=== PATIENT | female | born 1935 | race Caucasian/White ===

== ENCOUNTER 2023-01-29 19:42 | Emergency (ER) | payer MEDICARE ==
[~2023-01-29] VITALS: Ht 165.1 cm; Wt 83.9 kg
--- NOTE | 2023-01-29 20:20 | NUR ---
[id number] FROM HOME WITH CC OF COUGH, GEN WEAKNESS X2 DAYS, VOMITTED 2X. TESTED +COVID TODAY. PLACED IN BED, AAOX4, BREATHING EVEN AND UNLABORED SATURATING AT 96%RA.
--- NOTE | 2023-01-29 20:55 | NUR ---
BLOOD DRAWN AND SENT TO LAB
--- NOTE | 2023-01-29 20:57 | NUR ---
DELVIS NOEL DAUGHTER [phone] WANTS CALLBACK
[2023-01-29] MEDS ORDERED: ACETAMINOPHEN ES 500 MG TABLET PO ONE (21:00)
[2023-01-29] MEDS ORDERED: ACETAMINOPHEN ES 500 MG TABLET ONE (21:14)
[2023-01-29 21:25] LABS: BASOPHILS % (AUTO) 0.5 % (0.0-2.0); EOSINOPHILS % (AUTO) 0.3 % (0.0-6.0); HEMATOCRIT 41 % (33-45); HEMOGLOBIN 13.5 g/dL (11.5-14.8); LYMPHOCYTES % (AUTO) 12.4 % (20.0-44.0); MEAN CORPUSCULAR HGB CONC 33 g/dl (31.0-36.0); MEAN CORPUSCULAR VOLUME 89 fL (82-100); MONOCYTES # (AUTO) 0.9 K/uL (0.1-1.30); MONOCYTES % (AUTO) 12.2 % (2.0-12.0); NEUTROPHILS # (AUTO) 5.8 K/uL (1.8-8.9); NEUTROPHILS % (AUTO) 74.6 % (43.0-81.0); PLATELET COUNT (AUTO) 199 K/uL (150-450); RED BLOOD CELL COUNT(AUTO) 4.55 MIL/uL (4.0-5.2); WHITE BLOOD COUNT (AUTO) 7.8 K/uL (4.3-11.0)
--- NOTE | 2023-01-29 22:54 | NUR ---
COVID SWAB DONE AND SENT TO LAB
[2023-01-29 23:05] LABS: CHLORIDE 105 mmol/L (98-107); POTASSIUM 4.1 mmol/L (3.5-5.1); SODIUM SERUM 138 mmol/L (136-145)
[2023-01-29 23:06] LABS: CALCIUM, SERUM 8.9 mg/dL (8.5-10.1); CARBON DIOXIDE 28 mmol/L (21-32); GLUCOSE 123 mg/dL (74-106)
[2023-01-29 23:07] LABS: ALBUMIN 3.3 g/dL (3.4-5.0); ALKALINE PHOSPHATASE 50 U/L (46-116); CREATININE 1.2 mg/dL (0.6-1.3); TOTAL PROTEIN, SERUM 6.7 g/dL (6.4-8.2)
[2023-01-29] MEDS ORDERED: APIXABAN 2.5 MG TABLET ONE (23:43)
[2023-01-29] MEDS ORDERED: CARBIDOPA/LEVODOPA 25/100 MG 1 UDTAB ONE (23:57)
[2023-01-30] MEDS ORDERED: CARBIDOPA/LEVODOPA 25/100 MG 1 UDTAB PO SCH
[2023-01-30] MEDS ORDERED: APIXABAN 2.5 MG TABLET PO SCH
[2023-01-30 00:04] LABS: ALANINE AMINOTRANSFERASE 17 U/L (12-78); ASPARTATE AMINOTRANSFERASE 15 U/L (15-37); BILIRUBIN,TOTAL 0.5 mg/dL (0.2-1.0); UREA NITROGEN, BLOOD 21 mg/dL (7-18)
[2023-01-30] MEDS ORDERED: FUROSEMIDE 40 MG/4 ML VIAL ONE (00:57)
[2023-01-30] MEDS ORDERED: FUROSEMIDE 40 MG/4 ML VIAL IV ONE (01:00)
--- NOTE | 2023-01-30 01:22 | NUR ---
IV removed. Catheter intact and site benign. Pressure and 4x4 applied to site. No bleeding noted.
--- NOTE | 2023-01-30 01:27 | NUR ---
Patient discharged to home in stable condition. Written and verbal after care instructions given. Patient verbalizes understanding of instruction.
[2023-01-30 01:28] VITALS: BP 137/68
== END 2023-01-30 01:29 | disposition home or self-care (01) ==
LOC: ER 19:46
DX: U07.1 COVID-19 (principal); I50.9 Heart failure, unspecified; G20 Parkinson's disease
CPT/HCPCS: 99285; 96374; 71045; 93005; 85025; 36415; 80053; 84484; 83880; J1940